=== PATIENT | male | born 1955 | race Caucasian/White ===

== ENCOUNTER → 2019-07-21 | Outpatient (CLI) | payer BC ==
--- NOTE | 2019-07-21 10:28 | REP ---
REASON FOR EXAM: Hypertension. After the intravenous administration of 8.8 mCi of technetium-99m MAG-3 renal flow and function scintigraphy was performed. The renal flow and scan shows prompt symmetric distribution of the radiotracer in each kidney. Dynamic renal scan shows expected decreased activity in each kidney frame to frame, but with two focal areas of increased activity in the left kidney and one focal area of retained increased activity in the right kidney. Pre and postvoid scintiscans show no change in the retained tracer activity bilaterally. The time to peak activity on the right is 2 minutes and the time to peak activity on the left is 2 minutes. These values are normal. The time of T1/2 on the right is 12.6 minutes and on the left is 7.9 minutes. Split differential analysis shows 54% of the counts coming from the left kidney and 46% of the counts coming from the right kidney. IMPRESSION: Slight delay in T1/2 calculation right kidney as described above with the upper limit of normal being calculated at 11 minutes. The renal scan shows focal areas of tracer retention bilaterally which could at least in part be secondary to the slightly prolonged T1/2 value on the right. The tracer retention could be secondary to caliectasis. There are no prior imaging studies to review. Electronically Signed by Constantine Charles DO 07/21/2019 02:37 P
== END ==
LOC: M RAD 08:23
PROVIDERS: ATTEND Internal Medicine Nephrology
DX: I15.0 Renovascular hypertension (principal); N18.3 Chronic kidney disease, stage 3 (moderate)
CPT/HCPCS: 78707; A9562